=== PATIENT | male | born 2000 | race Two or more races ===

== ENCOUNTER 2024-09-21 00:25 | Emergency (ER) | payer MEDICAID, SELFPAY ==
[2024-09-21 00:26] VITALS: BMI 43.4
--- NOTE | 2024-09-21 00:27 | EKG_ITS ---
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
[2024-09-21 00:50] VITALS: BP 135/80; PULSE 97; RESP 18; TEMP 37.3; O2SAT 99
--- NOTE | 2024-09-21 00:54 | XR_ITS ---
Examination: PA lateral chest 2 views Technique: Upright PA lateral chest 2 views Exam date and time: September 21, 2024 0101 hrs. Comparison July 30, 2006 Indications: Chest pain shortness of breath today. Findings: Normal heart size The lungs are clear. The osseous structures are intact Impression: No active disease
--- NOTE | 2024-09-21 00:55 | PD.EDRME ---
Rapid Medical Screening Exam RME Arrival date/time: 09/21/24 00:25 24M with no significant PMH presents to ED with 2 days of CP and SOB. Patient denies URI symptoms. Patient admits he vapes a lot. Chief Complaint: Shortness of Breath/Dyspnea Vital signs: Vital Signs Temperature 99.2 F 09/21/24 00:50 Pulse Rate 97 09/21/24 00:50 Respiratory Rate 18 09/21/24 00:50 Blood Pressure 135/80 H 09/21/24 00:50 Pulse Oximetry (%) 99 09/21/24 00:50 Oxygen Delivery Method Room Air 09/21/24 00:50
[2024-09-21 01:19] LABS: Basophils # (Auto) 0.1 Thou/mm3 (0.0-0.2); Basophils % (Auto) 0 % (0-2.5); Eosinophils # (Auto) 0.3 Thou/mm3 (0.0-0.5); Eosinophils % (Auto) 2 % (0-10); Hematocrit 44.1 % (41.0-53.0); Hemoglobin 15.5 g/dL (13.5-16.0); Immature Granulocytes % (Auto) 0 % (0-0); Immature Granulocytes Auto 0.07 Thou/mm3 (0.00-0.00); Lymphocytes # (Auto) 3.2 Thou/mm3 (1.0-4.8); Lymphocytes % (Auto) 19 % (10-50); Mean Corpuscular HGB Conc 35.1 g/dl (31.0-37.0); Mean Corpuscular Hemoglobin 29.1 pg (25.0-35.0); Mean Corpuscular Volume 83 fL (80-100); Monocytes # (Auto) 1.2 Thou/mm3 (0.0-0.8); Monocytes % (Auto) 7 % (0-12); Neutrophils # (Auto) 12.3 Thou/mm3 (1.8-7.7); Neutrophils % (Auto) 71 % (37-80); Nucleated Red Blood Cell % 0 /100 WBC (0); Platelet Count 260 Thou/mm3 (140-440); RDW Standard Deviation 38.5 fL (35.1-43.9); Red Blood Count 5.32 Miln/mm3 (4.50-5.90); White Blood Count 17.2 Thou/mm3 (3.8-10.6)
[2024-09-21 01:39] LABS: Alanine Aminotransferase 18 U/L (10-49); Albumin, Serum 4.9 gm/dL (3.5-5.0); Albumin/Globulin Ratio 1.5 (1.2-2.2); Alkaline Phosphatase 101 U/L (46-116); Anion Gap 8 (7-16); Aspartate Amino Transferase 21 U/L (0-34); BUN/Creatinine Ratio 15 Ratio (12-20); Bilirubin,Total 0.6 mg/dL (0.3-1.2); Blood Urea Nitrogen 16 mg/dL (9-23); Calcium 9.6 mg/dL (8.3-10.6); Calcium (Corrected) 9.6 mg/dL (8.5-10.1); Carbon Dioxide 27.5 mMol/L (20.0-31.0); Chloride 103 mMol/L (98-107); Creatinine (Component) 1.1 mg/dL (0.6-1.3); Estimated Creatinine Clearance 154.6 mL/min (>60); Globulin 3.3 gm/dL (2.3-3.5); Glucose 123 mg/dL (74-106); Osmolality,Calculated 277 (275-295); Potassium 4.5 mMol/L (3.4-5.1); Sodium 138 mMol/L (136-145); Total Protein 8.2 gm/dL (5.7-8.2); Troponin I < 0.002 ng/mL (0.0-0.045); eGFR > 60 See Note
[2024-09-21 02:40] LABS: Amphetamine/Methamp Scrn,U Negative (Negative); Barbiturate Screen,Urine Negative (Negative); Benzodiazepines Screen,Urine Negative (Negative); Benzoylecgonine Screen, Ur Negative (Negative); Fentanyl Screen,Urine Negative (Negative); Opiate Screen,Urine Negative (Negative); THC Screen,Urine Negative (Negative)
[2024-09-21 04:19] VITALS: BP 164/98; PULSE 105; RESP 22; TEMP 38; O2SAT 98
[2024-09-21] MEDS: MORPHINE SULF INJ 10 MG/ML VIAL 5 MG IVP (06:21)
[2024-09-21] MEDS: ONDANSETRON INJ 2 MG/ML INJ 2 ML 4 MG IV (06:21)
[2024-09-21] MEDS: SODIUM CHLORIDE 0.9% 1000 ML 1,000 ML 999 ML IV (06:22)
[2024-09-21 06:37] LABS: D-Dimer < 250 ng/mL (<600); Troponin I < 0.002 ng/mL (0.0-0.045)
--- NOTE | 2024-09-21 06:43 | XR_ITS ---
Examination: Abdomen sonogram, complete Date and time of exam: September 21, 2024 0740 hrs. Indications: Epigastric pain chest pain right upper abdominal pain with fever beginning 3 days ago. Technique: Multiple real-time grayscale transabdominal sonographic images of the abdomen have been obtained. Findings: Normal gallbladder Normal common bile duct 0.3 cm Pancreas obscured by bowel gas Proximal distal aorta obscured by bowel gas mid aorta 1.7 cm Hepatomegaly 18.9 cm liver irregular contour 18 x 15 x 17 mm right lobe liver lesion likely hemangioma Normal hepatopedal portal venous flow Patent IVC Right kidney 13.4 x 5.8 x 4.8 cm cortex 2.3 cm Left kidney 11.6 x 6.8 x 6.8 cm cortex 1.6 cm Mild renal parenchymal scar formation Spleen 12.8 cm Impression: Normal gallbladder Small hyperechoic liver lesion 15 x 17 x 18 mm, consider elective CT scan abdomen pre and post contrast follow-up to assess this lesion, which may be a hemangioma Mild bilateral renal parenchymal scar formation Borderline splenomegaly Moderate hepatomegaly suspect primary hepatocellular disease
[2024-09-21] MEDS: cefTRIAXone/D5w 1gm IV premix 50 ML IV (08:11)
[2024-09-21] MEDS: ACETAMINOPHEN 500 MG TABLET 1000 MG PO (08:11)
[2024-09-21 09:44] VITALS: BP 147/71; PULSE 77; RESP 17; TEMP 36.8; O2SAT 98
[2024-09-21 11:54] LABS: Collection Type, Urine Clean Catch; Squamous Epithelial Cell,Urine 0 /hpf (0-5)
[2024-09-21 12:07] VITALS: BP 129/70; PULSE 79; RESP 18; TEMP 36.6; O2SAT 98
[2024-09-21 12:39] LABS: Bilirubin,Urine Negative (Negative); Blood,Urine Negative (Negative); Clarity,Urine Clear (Clear/Hazy); Color,Urine Yellow (Lt Yel-Yel); Culture Indicated,Urine Not Indicated; Glucose, Urine Negative (Negative); Ketones,Urine Negative (Negative); Leukocyte Esterase,Urine Negative (Negative); Nitrite,Urine Negative (Negative); Protein,Urine Trace (Neg - Trace); RBC,Urine 2 /hpf (0-3); Specific Gravity,Urine 1.033 (1.001-1.035); Urobilinogen,Urine Negative mg/dL (0.0-1.0); WBC,Urine < 1 /hpf (0-5)
[2024-09-21 14:00] VITALS: BP 127/82; PULSE 81; RESP 19; TEMP 36.8; O2SAT 98
--- NOTE | 2024-09-21 14:49 | EDNOTE_ITS ---
ED General RME/HPI General Chief complaint: Shortness of Breath/Dyspnea Stated complaint: TROUBLE BREATHING, CHEST PAIN Time Seen by Provider: 09/21/24 03:51 Arrival date/time: 09/21/24 00:25 RME / HPI RME / HPI narrative: 09/21/24 00:25 24M with no significant PMH presents to ED with 2 days of CP and SOB. Patient denies URI symptoms. Patient admits he vapes a lot. Patient presented to the emergency department with a low-grade temperature of 100.4 and right-sided chest pain and shortness of breath for the last 2 days. He described the pain as being achy and increased with deep breathing. No trauma no injury. No vomiting no diarrhea. No abdominal pain. No other complaint. Past medical history is obesity. And he is a cigarette vapor. Related Data Previous Rx's ?Medication ?Instructions ?Recorded ibuprofen 800 mg tablet 800 mg PO Q8H PRN pain #20 tabs 12/04/17 Allergies Allergy/AdvReac Type Severity Reaction Status Date / Time NKA Allergy Unknown Uncoded 05/08/03 22:03 Review of Systems Review of Systems Narrative Review of Systems: REVIEW OF SYSTEM: GEN:? negative except mentioned in HPI HEENT:? negative except mentioned in HPI NECK:? negative except mentioned in HPI PULM:? negative except mentioned in HPI CARD:? negative except mentioned in HPI GI:? negative except mentioned in HPI MUSCULO/SKET: negative except mentioned in HPI SKIN:? negative except mentioned in HPI NEURO:? negative except mentioned in HPI PSYCH:? negative except mentioned in HPI Past Medical History Past Medical History CARDIAC: Negative Congestive Heart Failure RESPIRATORY: Negative Chronic Obstructive Pulmonary Disease (COPD) GENITOURINARY: Negative Renal Disease ENDOCRINE: Negative Diabetes Mellitus Type 1 or Diabetes Mellitus Type 2 Surgical History SURGICAL: Positive Tonsillectomy Social History SMOKING STATUS: Never smoker ED Exam Narrative Physical exam: Aaox4. No acute distress O2 saturation is normal Heent:? perra. Eomi. No icteric. Neck: full rom.? No mass.? No jvd.? No lymphadenopathy Lungs:? clear, full, equal Heart:? s1s2.? Rrr.? No murmur, gallop or rub. Abd: soft, nondistended, nontender, no mass, no rebound or guarding, no flank tender.? No incarcerated? hernia Ext:? full rom.? No deformity.? Normal csm. Neuro:?? intact cn2 to 12.? No facial droop.? No slurred speech.? No focal deficit.? Moves all 4ext Skin:? no rash.? No cellulitis.? No lesion.? No laceration Psychiatrical: no suicidal.? No homicidal.? No delusion.? No hallucinating Course Quality Measures none Orders Category Date Time Status Bedside COVID-19 Antigen Test NOW Care 09/21/24 14:49 Active Bedside Influenza A&B Antigen Test NOW Care 09/21/24 14:49 Active EKG (ED ONLY) *Do not use* NOW Care 09/21/24 00:27 Completed EKG (ED Only) Stat Exams 09/21/24 00:27 Draft US abdomen Stat Exams 09/21/24 06:43 Completed XR chest 2V Stat Exams 09/21/24 00:54 Completed Blood Culture (Lab) Stat Lab 09/21/24 08:15 Received CBC Stat Lab 09/21/24 01:03 Completed Comprehensive Metabolic Panel Stat Lab 09/21/24 01:03 Completed D-Dimer Stat Lab 09/21/24 06:11 Completed Drug Screen,Urine Stat Lab 09/21/24 01:40 Completed Troponin I Stat Lab 09/21/24 01:03 Completed Troponin I Stat Lab 09/21/24 06:11 Completed UA, C/S IF [Urinalysis, C/S if Indicated] Stat Lab 09/21/24 11:23 Completed Acetaminophen Tab [Tylenol ES Tab] Med 09/21/24 06:44 Discontinued 1,000 mg PO X1 ONE Morphine Inj Med 09/21/24 06:09 Discontinued 5 mg IVP X1 ONE Ondansetron Inj [Zofran Inj] Med 09/21/24 06:10 Discontinued 4 mg IV X1 ONE Sodium Chloride 0.9% 1000 ml [Ns] 1,000 ml Med 09/21/24 05:53 Discontinued IV 999 mls/hr cefTRIAXone/D5w 1gm IV premix [Rocephin/D5w 1gm IV Med 09/21/24 06:44 Discontinued premix] 50 ml IV X1 Vital Signs Vital signs: Vital Signs Temperature 99.2 F 09/21/24 00:50 Pulse Rate 97 09/21/24 00:50 Respiratory Rate 18 09/21/24 00:50 Blood Pressure 135/80 H 09/21/24 00:50 Pulse Oximetry (%) 99 09/21/24 00:50 Oxygen Delivery Method Room Air 09/21/24 00:50 [facility] Patient data External records reviewed:: [facility] previous records Clinical information provided by:: patient Social determinants that could affect healthcare access:: none Patient has the following chronic illnesses:: Obesity How is presenting disease/condition affected by chronic disease/condition?: u neffected by Evaluation data The following diagnostics were reviewed and interpreted by me:: lab results, radiology exam(s) and EKG tracing(s) Lab and/or radiology exams considered but not ordered:: CT chest abdomen and pelvic. Patient left AMA before hands Interpretation Summary: See MDM Medications Medications considered but not ordered:: None Medication administrations:: Medication Administration History Discontinued Medications Acetaminophen (Acetaminophen 500 Mg Tablet) 1,000 mg PO X1 ONE Stop: 09/21/24 06:45 Last Admin: 09/21/24 08:11 Dose: 1,000 mg Documented By: SHAILA Sodium Chloride (Ns) 1,000 mls @ 999 mls/hr IV .Q1H1M ONE Stop: 09/21/24 06:53 Last Infusion: 09/21/24 07:50 Dose: Infused Documented By: Admin: 09/21/24 06:22 Dose: 999 mls/hr Documented By: CHERRY Ceftriaxone Sodium/Dextrose (Rocephin/D5w 1gm Iv Premix) 50 mls @ 100 mls/hr IV X1 ONE Stop: 09/21/24 07:13 Last Infusion: 09/21/24 09:11 Dose: Infused Documented By: Admin: 09/21/24 08:11 Dose: 100 mls/hr Documented By: SHAILA Morphine Sulfate (Morphine Sulf Inj 10 Mg/Ml Vial) 5 mg IVP X1 ONE Stop: 09/21/24 06:10 Last Admin: 09/21/24 06:21 Dose: 5 mg Documented By: CHERRY Ondansetron HCl (Ondansetron Inj 2 Mg/Ml Inj 2 Ml) 4 mg IV X1 ONE; Protocol Stop: 09/21/24 06:11 Last Admin: 09/21/24 06:21 Dose: 4 mg Documented By: CHERRY See above Consultations Consultation(s) initiated? (list below): No Diagnosis Differential Diagnosis ED Complaint MDM: Fever. Chest pain. AMA Most likely diagnosis given after review of the tests above:: Fever. Chest pain. AMA Admission Indicated Admission indicated?: not indicated (Patient left AMA) Explain why admission is indicated or not indicated:: Left AMA Admission Request Was there a request for admission?: No Disposition Plan Disposition Plan: other (specify) (Patient left AMA) Medical Decision Making MDM Narrative MDM Narrative: WBC count is 17,000. CMP is negative. U tox negative. Troponin negative twice. UA is negative. D-dimer is negative. Twelve-lead EKG at 12:54 AM and interpreted by me: Sinus rhythm. Heart rate of 97. Normal axis. No ST elevation or depression. No PVC. No STEMI. Regular rate and rhythm. Chest x-ray interpreted by me: Clear lungs. Heart normal. Mediastinum normal. Normal bones. [facility] [address] [place] [address] [facility] Report Signed Patient: HAILEY JOHNSON Record#: [id number] Birthdate: 2000 Age/Sex: 24 / M Location: [facility] Attending Dr: Ordering Physician: Juan Joshi MD Date of Service: 09/21/24 Procedure(s): US abdomen Accession Number(s): [id number] cc: Mikey Farley MD; NO PRIMARY/FAMILY,PHYSICIAN; Juan Joshi MD~ Examination: Abdomen sonogram, complete Date and time of exam: September 21, 2024 0740 hrs. Indications: Epigastric pain chest pain right upper abdominal pain with fever beginning 3 days ago. Technique: Multiple real-time grayscale transabdominal sonographic images of the abdomen have been obtained. Findings: Normal gallbladder Normal common bile duct 0.3 cm Pancreas obscured by bowel gas Proximal distal aorta obscured by bowel gas mid aorta 1.7 cm Hepatomegaly 18.9 cm liver irregular contour 18 x 15 x 17 mm right lobe liver lesion likely hemangioma Normal hepatopedal portal venous flow Patent IVC Right kidney 13.4 x 5.8 x 4.8 cm cortex 2.3 cm Left kidney 11.6 x 6.8 x 6.8 cm cortex 1.6 cm Mild renal parenchymal scar formation Spleen 12.8 cm Impression: Normal gallbladder Small hyperechoic liver lesion 15 x 17 x 18 mm, consider elective CT scan abdomen pre and post contrast follow-up to assess this lesion, which may be a hemangioma Mild bilateral renal parenchymal scar formation Borderline splenomegaly Moderate hepatomegaly suspect primary hepatocellular disease Dictated By: Mikey Farley MD Signed By: <Electronically signed by Mikey Farley MD in [place]> 09/21/2443 DD/ 0 TD/TT: 09/21/24840 Wire Hanger: NELLY 2:52 PM, the cause of his fever and high white count is still unknown. And the cause of his right sided chest pain is still unknown. I was adding a COVID-19 and influenza virus tests and was contemplating doing a CT of the chest abdomen and pelvic when I was informed by the nursing staff that the patient had signed out AMA. Differential Diagnosis Differential Diagnosis: Fever. Chest pain. AMA Lab Data 09/21/24 01:03 09/21/24 01:03 Labs: Lab Results 09/21/24 09/21/24 09/21/24 Range/Units 01:03 01:40 06:11 WBC 17.2 H (3.8-10.6) Thou/mm3 RBC 5.32 (4.50-5.90) Miln/mm3 Hgb 15.5 (13.5-16.0) g/dL Hct 44.1 (41.0-53.0) % MCV 83 (80-100) fL MCH 29.1 (25.0-35.0) pg MCHC 35.1 (31.0-37.0) g/dl RDW Std Deviation 38.5 (35.1-43.9) fL Plt Count 260 (140-440) Thou/mm3 Neut % (Auto) 71 (37-80) % Lymph % (Auto) 19 (10-50) % Rincon % (Auto) 7 (0-12) % Eos % (Auto) 2 (0-10) % Baso % (Auto) 0 (0-2.5) % Neut # (Auto) 12.3 H (1.8-7.7) Thou/mm3 Lymph # (Auto) 3.2 (1.0-4.8) Thou/mm3 Rincon # (Auto) 1.2 H (0.0-0.8) Thou/mm3 Eos # (Auto) 0.3 (0.0-0.5) Thou/mm3 Baso # (Auto) 0.1 (0.0-0.2) Thou/mm3 Immature Gran # (Auto) 0.07 H (0.00-0.00) Thou/mm3 Absolute Nucleated RBC 0.00 (0.00-0.00) Thou/mm3 Immature Gran % 0 (0-0) % Nucleated RBC % 0 (0) /100 WBC D-Dimer < 250 (<600) ng/mL Sodium 138 (136-145) mMol/L Potassium 4.5 (3.4-5.1) mMol/L Chloride 103 (98-107) mMol/L Carbon Dioxide 27.5 (20.0-31.0) mMol/L Anion Gap 8 (7-16) BUN 16 (9-23) mg/dL Creatinine 1.1 (0.6-1.3) mg/dL Estim Creat Clear Calc 154.6 (>60) mL/min eGFR > 60 (60 - ) See Note BUN/Creatinine Ratio 15 (12-20) Ratio Glucose 123 H (74-106) mg/dL Calculated Osmolality 277 (275-295) Calcium 9.6 (8.3-10.6) mg/dL Corrected Calcium 9.6 (8.5-10.1) mg/dL Total Bilirubin 0.6 (0.3-1.2) mg/dL AST 21 (0-34) U/L ALT 18 (10-49) U/L Alkaline Phosphatase 101 (46-116) U/L Troponin I < 0.002 < 0.002 (0.0-0.045) ng/mL Total Protein 8.2 (5.7-8.2) gm/dL Albumin 4.9 (3.5-5.0) gm/dL Globulin 3.3 (2.3-3.5) gm/dL Albumin/Globulin Ratio 1.5 (1.2-2.2) Ur Collection Type Urine Color (Lt Yel-Yel) Urine Clarity (Clear/Hazy) Urine pH (5.0-7.0) Ur Specific Singer (1.001-1.035) Urine Protein (Neg - Trace) Urine Glucose (UA) (Negative) Urine Ketones (Negative) Urine Blood (Negative) Urine Nitrite (Negative) Urine Bilirubin (Negative) Urine Urobilinogen (Auto) (0.0-1.0) mg/dL Ur Leukocyte Esterase (Negative) Urine RBC (0-3) /hpf Urine WBC (0-5) /hpf Ur Squamous Epith Cells (0-5) /hpf Urine Bacteria (None) Ur Culture Indicated? Urine Opiates Screen Negative (Negative) Urine Fentanyl Screen Negative (Negative) Ur Barbiturates Screen Negative (Negative) U Amphetamin/Meth Scrn Negative (Negative) U Benzodiazepines Scrn Negative (Negative) U Cocaine Metab Screen Negative (Negative) U Marijuana (THC) Screen Negative (Negative) 09/21/24 Range/Units 11:23 WBC (3.8-10.6) Thou/mm3 RBC (4.50-5.90) Miln/mm3 Hgb (13.5-16.0) g/dL Hct (41.0-53.0) % MCV (80-100) fL MCH (25.0-35.0) pg MCHC (31.0-37.0) g/dl RDW Std Deviation (35.1-43.9) fL Plt Count (140-440) Thou/mm3 Neut % (Auto) (37-80) % Lymph % (Auto) (10-50) % Rincon % (Auto) (0-12) % Eos % (Auto) (0-10) % Baso % (Auto) (0-2.5) % Neut # (Auto) (1.8-7.7) Thou/mm3 Lymph # (Auto) (1.0-4.8) Thou/mm3 Rincon # (Auto) (0.0-0.8) Thou/mm3 Eos # (Auto) (0.0-0.5) Thou/mm3 Baso # (Auto) (0.0-0.2) Thou/mm3 Immature Gran # (Auto) (0.00-0.00) Thou/mm3 Absolute Nucleated RBC (0.00-0.00) Thou/mm3 Immature Gran % (0-0) % Nucleated RBC % (0) /100 WBC D-Dimer (<600) ng/mL Sodium (136-145) mMol/L Potassium (3.4-5.1) mMol/L Chloride (98-107) mMol/L Carbon Dioxide (20.0-31.0) mMol/L Anion Gap (7-16) BUN (9-23) mg/dL Creatinine (0.6-1.3) mg/dL Estim Creat Clear Calc (>60) mL/min eGFR (60 - ) See Note BUN/Creatinine Ratio (12-20) Ratio Glucose (74-106) mg/dL Calculated Osmolality (275-295) Calcium (8.3-10.6) mg/dL Corrected Calcium (8.5-10.1) mg/dL Total Bilirubin (0.3-1.2) mg/dL AST (0-34) U/L ALT (10-49) U/L Alkaline Phosphatase (46-116) U/L Troponin I (0.0-0.045) ng/mL Total Protein (5.7-8.2) gm/dL Albumin (3.5-5.0) gm/dL Globulin (2.3-3.5) gm/dL Albumin/Globulin Ratio (1.2-2.2) Ur Collection Type Clean Catch Urine Color Yellow (Lt Yel-Yel) Urine Clarity Clear (Clear/Hazy) Urine pH 6.0 (5.0-7.0) Ur Specific Singer 1.033 (1.001-1.035) Urine Protein Trace (Neg - Trace) Urine Glucose (UA) Negative (Negative) Urine Ketones Negative (Negative) Urine Blood Negative (Negative) Urine Nitrite Negative (Negative) Urine Bilirubin Negative (Negative) Urine Urobilinogen (Auto) Negative (0.0-1.0) mg/dL Ur Leukocyte Esterase Negative (Negative) Urine RBC 2 (0-3) /hpf Urine WBC < 1 (0-5) /hpf Ur Squamous Epith Cells 0 (0-5) /hpf Urine Bacteria None (None) Ur Culture Indicated? Not Indicated Urine Opiates Screen (Negative) Urine Fentanyl Screen (Negative) Ur Barbiturates Screen (Negative) U Amphetamin/Meth Scrn (Negative) U Benzodiazepines Scrn (Negative) U Cocaine Metab Screen (Negative) U Marijuana (THC) Screen (Negative) Discharge Plan Plan Patient Disposition: Left Against Medical Advice Disposition Comment: Stable Prescriptions/Referrals Prescriptions/Med Rec: No Action ibuprofen 800 mg tablet 800 mg PO Q8H PRN (Reason: pain) Qty: 20 0RF Referrals: No Primary/Family,Physician [Primary Care Provider] - In 1 week Problem List Clinical Impression: Fever, Chest pain, Left against medical advice Patient/Caregiver Discharge Instructions Print Language: Macedonian
--- NOTE | 2024-09-21 14:52 | PC.NURSE ---
Patient upset due to the wait, I encouraged pt to stay and complete tx. States he is just going to leave and go to [facility]. Refused to stay any longer. Risk given to pt. AMA form complete.
== END 2024-09-21 14:55 | disposition left against medical advice (07) ==
PROVIDERS: Emergency Medicine; Physician Assistant; Emergency Provider Emergency Medicine
DX: R07.1 Chest pain on breathing (principal); R50.9 Fever, unspecified; R06.02 Shortness of breath; R16.2 Hepatomegaly with splenomegaly, not elsewhere classified; K76.9 Liver disease, unspecified; N28.89 Other specified disorders of kidney and ureter; Z53.29 Procedure and treatment not carried out because of patient's decision for other reasons
CPT/HCPCS: 36415; 71046; 76700; 80053; 80307; 81001; 84484; 85025; 85379; 87040; 93005; 96365; 96375; 99284; J0696; J2270; J2405; J7030; A9270